=== PATIENT | female | born 1945 | race African-American/Black ===

== ENCOUNTER 2019-08-06 13:45 | Emergency (ER) | payer SELFPAY ==
[2019-08-06] MEDS ORDERED: ONDANSETRON 4 MG/2 ML VIAL IVPUSH ONE (14:59)
[2019-08-06] MEDS ORDERED: ACETAMINOPHEN 325 MG TABLET (FP) PO ONE (14:59)
[2019-08-06] MEDS ORDERED: LACTATED RINGERS SOLUTION 1000 ML INFUS.BAG IV ONE (14:59)
[2019-08-06] MEDS ORDERED: FAMOTIDINE 20 MG/50 ML IVPB 20 MG/50 ML MG IVPB ONE ×2 (15:00→15:44)
--- NOTE | 2019-08-06 15:16 | PDOC ---
History of Present Illness - General Chief Complaint: Pain Stated Complaint: VOMITING/ABD PAIN Time Seen by Provider: 08/06/19 14:46 History Source: Patient, Family (Sister and Niece at bedside.) Exam Limitations: No Limitations - History of Present Illness Initial Comments: HPI: 74 y/o female presenting to [facility] ER complaining of two days of diffuse abdominal pain with nausea, vomiting, diarrhea, and chills. Symptoms started yesterday afternoon after visiting the pharmacy. States the pain started in the lower, middle of her abdomen and radiates diffusely to all four quadrants, both flanks, and lower back. Emesis described as nonbloody and nonbilious. Diarrhea described as watery and nonbloody. Denies associated chest pain, shortness of breath, dysuria, or hematuria. No recent travel or antibiotic use. Sought emergency evaluation because she "can't keep anything down." Medical Hx: - HTN - HLD - DM, managed with Metformin Surgical Hx: - Review of Systems: In addition to that documented in the HPI above, the additional ROS was obtained : Constitutional- Endorses chills. Denies fevers or diaphoresis Head- Denies vision changes ENMT- Denies sore throat CV- Denies chest pain Resp- Denies SOB GI- Per HPI - Denies painful urination MSK- Denies recent trauma Skin- Denies new rashes Neuro- Denies new numbness or tingling or weakness Endocrine- Denies polyuria Heme- Denies bleeding or bruising Physical Examination: Vital signs and nursing notes reviewed. Constitutional- Nontoxic, well-developed, well-nourished elderly adult female in no acute distress or obvious discomfort. Found semi-fowlers on hospital bed. Answered all questions appropriately and completely. Head- Normocephalic. No obvious external signs of trauma. Eyes- Sclerae white. Conjunctiva pink, moist, and not injected. Nose- No nasal discharge. Neck- Supple, trachea is midline. Cardiovascular / Chest- Regular rate and regular rhythm. No murmur, rubs, clicks , or gallops. Peripheral pulses- radial pulses full. No pretibial edema bilaterally. Respiratory- Breathing unlabored. Equal chest rise and fall. Clear to auscultation bilaterally. No stridor, no wheezing, no rhonchi. Gastrointestinal- Pt reports discomfort in all four quadrants without grimace, rebound, or guarding. Pt did not pause conversation during palpation. Able to transition from semi-fowlers to fowlers position without obvious discomfort. Globally, abdomen is soft and non-distended. No pulsatile masses. No overlying skin lesions or obvious signs of trauma. Post surgical scar to midline below umbilicus. Neuro- Alert and oriented x4. Moving all four extremities spontaneously. Skin- Warm, dry, and intact. - No R or L CVA tenderness. Psych- Affect- appropriate. Mood- normal. Speech was non-labored, non- pressured. MDM: 74 y/o female presenting with diffuse abdominal pain, nausea, vomiting, and diarrhea x2 days. Afebrile. Vitals unremarkable for hypotension or tachycardia. Physical exam as described above. No acute abdominal signs. Suspect likely viral gastroenteritis. Low suspicion for hepatitis, biliary colic, pancreatitis , perforation, diverticulitis, or appendicitis. Will obtain EKG and troponin to evaluate for atypical ACS. Will obtain Lactic acid to evaluate for mesenteric ischemia. Will obtain TSH and T4 to evaluate for hyperthyroidism. Pt reassessed. Reports abdominal pain has improved. No further vomiting or diarrhea. Repeat abdominal exam unchanged from initial. No acute abdominal signs. Reviewed labs. Noted slight leukocytosis. Suspect likely reactionary. Low suspicion for SBI given vital signs and normal lactic acid. Discussed laboratory results with pt. Answered all questions. Provided return precautions. pt expressed verbal understanding and agreement with plan to discharge home with outpatient follow up. Provided copies of todays results. Prescribed short course of Zofran ODT. Judah Cheatham M.D., PGY2 Emergency Medicine Resident Past History - Past Medical History Allergies/Adverse Reactions: Allergies Allergy/AdvReac Type Severity Reaction Status Date / Time No Known Allergies Allergy Verified 08/06/19 14:12 Home Medications: Ambulatory Orders Aspirin Coated [Ecotrin -] 81 mg PO DAILY 08/06/19 Atorvastatin Calcium [Lipitor] 20 mg PO HS 08/06/19 Metformin HCl [Glucophage] 1,000 mg PO BID 08/06/19 Ondansetron [Zofran Odt -] 4 mg SL TID PRN #14 od.tablet 08/06/19 COPD: No Diabetes: Yes HTN: Yes - Psycho Social/Smoking Cessation Hx Smoking History: Never smoked *Physical Exam - Vital Signs Last Vital Signs Temp Pulse Resp BP Pulse Ox 99.8 F H 99 H 18 136/76 100 08/06/19 14:08 08/06/19 14:08 08/06/19 14:08 08/06/19 14:08 08/06/19 14:08 ED Treatment Course - LABORATORY CBC & Chemistry Diagram: 08/06/19 15:15 08/06/19 15:15 Discharge - Discharge Information Problems reviewed: Yes Clinical Impression/Diagnosis: Generalized abdominal pain, Nausea vomiting and diarrhea Condition: Improved Disposition: HOME - Admission No - Additional Discharge Information Prescriptions: Ondansetron [Zofran Odt -] 4 mg SL TID PRN #14 od.tablet PRN Reason: Nausea / Vomiting - Follow up/Referral Referrals: Vignesh Ford MD [Primary Care Provider] - - Patient Discharge Instructions Patient Printed Discharge Instructions: DI for Viral Gastroenteritis -- Adult, Gastroenteritis Diet Additional Instructions: You were seen today for abdominal pain with nausea, vomiting, and diarrhea. Your blood work and physical exam did not show a life threatening illness. Your symptoms will likely improve over the next several days. You can take over the counter Tylenol as needed for pain. Take as directed on the package insert. Do not exceed the recommended dosage. Please continue to drink fluids (water, Gatorade, etc) to stay hydrated. Mix sugary drinks with water as the sugar can further dehydrate you. You can try and eat a small bland meal (crackers, etc) after you have stopped vomiting for 12 hours. I have sent a prescription for Zofran to your pharmacy. Take as directed on the package insert. Do not take more than the recommended dose. An informational leaflet about the medication is attached. Return to the emergency room if your vomiting becomes much worse and you are no longer able to keep fluids down, if you begin to feel dehydrated, if you develop a fever, pass out, become disoriented, begin vomiting blood, have bloody diarrhea, or you feel like you need additional emergency care. Follow up with your primary care doctor in the next 1-2 days. You will need to call to make an appointment. The number is included in this packet. A copy of todays results are attached to this packet. Take it to the appointment so your doctor can review them. Go to the nearest emergency department if your condition worsens or you feel like you need additional emergency evaluation. Print Language: SURINAMESE - Post Discharge Activity
[2019-08-06 15:42] LABS: BASO % 0.3 % (0-2.0); EOS % 0.4 % (0-4.5); HEMATOCRIT 41.3 % (32.4-45.2); HEMOGLOBIN 13.6 GM/dL (10.7-15.3); MCH 27.4 pg (25.7-33.7); MEAN CELL VOLUME 82.9 fl (80-96); MEAN PLT VOLUME 8.1 fl (7.5-11.1); MONO % 3.3 % (3.8-10.2); PLATELET COUNT 290 K/MM3 (134-434); RBC 4.98 M/mm3 (3.60-5.2); RDW 13.8 % (11.6-15.6)
[2019-08-06] MEDS ORDERED: ONDANSETRON 4 MG/2 ML VIAL ONE (15:44)
[2019-08-06 16:09] LABS: ALBUMIN 4.2 g/dl (3.4-5.0); BILIRUBIN,TOTAL 0.5 mg/dL (0.2-1); BLOOD UREA NITROGEN 14.8 mg/dL (7-18); CALCIUM 9.2 mg/dL (8.5-10.1); CREATININE 0.9 mg/dL (0.55-1.3); POTASSIUM 4.1 mmol/L (3.5-5.1); TOT PROT 7.8 g/dl (6.4-8.2)
[2019-08-06] MEDS ORDERED: MAG HYDROX/AL HYDROX/SIMETH 30 ML UNIT-DOSE CUP PO ONE (16:13)
--- NOTE | 2019-08-06 16:15 | PDOC ---
Attending Attestation - Resident Resident Name: Judah Cheatham - ED Attending Attestation I have performed the following: I have examined & evaluated the patient, The case was reviewed & discussed with the resident, I agree w/resident's findings & plan - HPI HPI: 08/06/19 16:13 74 y/o female h/o HTN, HLD, DM, presenting to [facility] ER complaining of 2 days of diffuse abdominal pain with nausea, vomiting, diarrhea, and chills. Symptoms started yesterday afternoon after visiting the pharmacy. States the pain started in the upper abdomen, umbilicus and radiates diffusely to all four quadrants, both flanks, and lower back. a/w multiple episodes of nausea, NBNB emesis and watery brown diarrhea. Denies associated chest pain, shortness of breath, dysuria, or hematuria. No recent travel or antibiotic use. no recent sick contacts. unable to tolerate oral /PO intake 08/06/19 16:35 - Physicial Exam PE: 08/06/19 16:13 Agree with the resident's HPI and PE as documented in the electronic medical record. NAD, well appearing, EOMI, PERRL, nl conjunctiva, anicteric; neck supple. lungs clear, RRR, abdomen soft nontender. obese abdomen, no rebound, guarding. Back nontender. H[place]ERSON x4, no focal neuro deficits. No peripheral edema. normal color for ethnicity, WWP. 08/06/19 17:29 - Medical Decision Making 08/06/19 16:14 Vital Signs Temp Pulse Resp BP Pulse Ox 99.8 F H 99 H 18 136/76 100 08/06/19 14:08 08/06/19 14:08 08/06/19 14:08 08/06/19 14:08 08/06/19 14:08 VS reviewed, low grade temp, however no fever normotensive HR in 90s, abdomen exam benign, no focal tenderness, no peritoneal findings. no beal's and no mcburney's point tenderness, so unlikely diverticulitis/appy. ddx. viral syndrome, flu, PUD, esophageal spasm, gastroenteritis, dehydration, anemia, electrolyte/metabolic derangements. infection. pancreatitis, hepatitis. Labs and lytes, flu test unremarkable, neg flu test. LFTs/ thyroid panel, lipase wnl, reassuring. unlikely hepatitis, biliary etiology or pancreatitis. nontoxic appearing, no fever, no urinary sx to suggest UTI or pyelo, no flank or CVAT - defer testing as low utility w/o acute symptoms IVF, hydration and antiemetics, reassess. Abdomen nonperitoneal, diffuse and nonfocal, nontender on repeat exam - still m ore likely AGE given n/v/d. No imaging indicated at this time. brash diet, hydration, supportive care. rx zofran prn for n/v Pt to be discharged in stable condition. Patient and family made aware of clinical impression, treatment recommendations and disposition plan, return precautions discussed (including but not limited to new or persistent/worsening symptoms, pain, fevers, or signs of infection, chest pain, respiratory distress , inability to tolerate oral intake, dehydration, syncope, or neurologic changes ). Follow up with PMD as recommended, follow up information provided, take medications as instructed for duration of time. continue with supportive care, avoid triggers and precipitants. All questions answered to patient's satisfaction and expressed understanding and comfort with this. At the time of discharge, the patient is alert, clinically improved, tolerating po and verbalizes understanding of instructions, satisfied with the care received and felt comfortable with the plan. Patient does not suffer from an acute life- threatening medical condition at this time and is safe for outpatient follow- up. 08/06/19 16:36 08/06/19 17:29 Heart Score/ECG Review #1 ECG reviewed & interpreted by me at: 15:00 General ECG Interpretation: Sinus Rhythm, Normal Rate, Normal Intervals 08/06/19 16:14 EKG normal sinus rhythm at 91 bpm, no interval abnormalities, narrow QRS, ST and T wave segments and morphology normal. Nonspecific T wave abnormalities in V1-3, no prior.
[2019-08-06 16:43] LABS: MAGNESIUM 1.9 mg/dL (1.8-2.4); PHOSPHOROUS 2.4 mg/dL (2.5-4.9)
[2019-08-06] MEDS ORDERED: ACETAMINOPHEN 325 MG TABLET (FP) ONE (17:26)
[2019-08-06] MEDS ORDERED: MAG HYDROX/AL HYDROX/SIMETH 30 ML UNIT-DOSE CUP ONE (17:26)
[2019-08-06 17:32] VITALS: BP 121/68; PULSE 87; TEMP 99.2
[2019-08-06 18:36] LABS: PLATELET ESTIMATE ADEQUATE
--- NOTE | 2019-08-07 13:36 | EKG ---
Test Reason : Blood Pressure : / mmHG Vent. Rate : 091 BPM Atrial Rate : 091 BPM P-R Int : 142 ms QRS Dur : 100 ms QT Int : 378 ms P-R-T Axes : 058 042 053 degrees QTc Int : 464 ms NORMAL SINUS RHYTHM POSSIBLE LEFT ATRIAL ENLARGEMENT INCOMPLETE RIGHT BUNDLE BRANCH BLOCK NONSPECIFIC T WAVE ABNORMALITY ABNORMAL ECG NO PREVIOUS ECGS AVAILABLE Confirmed by MD LADI, FERNANDA ([id number]) on 08/07/2019 1:36:16 PM Referred By: Confirmed By:FERNANDA BLEDSOE MD
== END 2019-08-06 18:05 | disposition home or self-care (01) ==
LOC: SUPCPDRO 13:45 → JER 13:45
PROC: 3E033GC Introduction of Other Therapeutic Substance into Peripheral Vein, Percutaneous Approach (ICD-10-PCS; principal; 2019-08-06)
PROC: 3E033GC Introduction of Other Therapeutic Substance into Peripheral Vein, Percutaneous Approach (ICD-10-PCS; 2019-08-06)
DX: R10.9 Unspecified abdominal pain (principal); R11.2 Nausea with vomiting, unspecified; I10 Essential (primary) hypertension; E78.5 Hyperlipidemia, unspecified; E11.9 Type 2 diabetes mellitus without complications; Z79.84 Long term (current) use of oral hypoglycemic drugs
CPT/HCPCS: 36415; 80053; 83605; 83690; 83735; 84100; 84436; 84443; 84484; 85025; 87804; 93005; 93010; 99283-25